=== PATIENT | female | born 1975 | race Caucasian/White ===

== ENCOUNTER 2016-10-01 21:53 | Emergency (ER) | payer OTHER ==
[2016-10-01 21:59] VITALS: BP 146/65; PULSE 116; TEMP 98.3; BMI 30.8
[2016-10-01 23:06] LABS: URINE APPEARANCE CLEAR; URINE BILIRUBIN NEGATIVE (NEGATIVE); URINE COLOR COLORLESS; URINE GLUCOSE (UA) 3+ (NEGATIVE); URINE KETONE NEGATIVE (NEGATIVE); URINE LEUK ESTERASE NEGATIVE (NEGATIVE); URINE NITRITE NEGATIVE (NEGATIVE); URINE PROTEIN NEGATIVE (NEGATIVE); URINE UROBILINOGEN NEGATIVE E.U./dl (0.2-1.0)
[2016-10-01 23:09] LABS: URINE BLOOD 2+ (NEGATIVE)
[2016-10-01 23:17] LABS: URINE BACTERIA RARE /hpf (NONE SEEN); URINE MUCUS RARE; URINE RBC 3 /hpf (0-3); URINE WBC <1 /hpf (3-5)
--- NOTE | 2016-10-01 23:35 | PDOC ---
History of Present Illness - General History Source: Patient Exam Limitations: No Limitations - History of Present Illness Initial Comments: 10/01/16 23:47 Patient is a 41 year old female , 10 weeks , with no significant past medical history who presents to the ED with abdominal pain and fever. She reports sharp RLQ abdominal pain. She notes that her fever at home was 100.6. Patient also reports sore throat, runny nose and cough. Patient states her her LMP was 07/20/2016. She notes that she has an [employer] appointment at [address] [place] [address] on 10/03. She reports sick contact with her children that have the flu. 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 <Nelly Locke - Last Filed: 10/01/16 23:47> <Zenia Arora - Last Filed: 10/02/16 02:03> - General Chief Complaint: Pain Stated Complaint: FEVER/BACK PAIN/ 8WKS PREGANANT Time Seen by Provider: 10/01/16 22:21 Past History <Nelly Locke - Last Filed: 10/01/16 23:47> - Psycho/Social/Smoking Cessation Hx Suicidal Ideation: No Smoking History: Unknown if ever smoked Hx Alcohol Use: No Drug/Substance Use Hx: No <Zenia Arora - Last Filed: 10/02/16 02:03> - Past Medical History Allergies/Adverse Reactions: Allergies Allergy/AdvReac Type Severity Reaction Status Date / Time No Known Allergies Allergy Verified 10/01/16 21:56 Home Medications: Ambulatory Orders Oseltamivir Phosphate [Tamiflu -] 75 mg PO BID #10 capsule 10/02/16 Review of Systems - Review of Systems Able to Perform ROS?: Yes Comments:: 10/01/16 23:48 CONSTITUTIONAL: Present: fever Absent: chills, diaphoresis, generalized weakness, malaise, loss of appetite HEENT: Present: rhinorrhea, throat pain Absent: nasal congestion, throat swelling, difficulty swallowing, mouth swelling , ear pain, eye pain, visual Changes CARDIOVASCULAR: Absent: chest pain, syncope, palpitations, irregular heart rate, lightheadedness , peripheral edema RESPIRATORY: Present: cough Absent: shortness of breath, dyspnea with exertion, orthopnea, wheezing, stridor , hemoptysis GASTROINTESTINAL: Present: abdominal pain Absent: abdominal distension, nausea, vomiting, diarrhea, constipation, melena, hematochezia GENITOURINARY: Absent: dysuria, frequency, urgency, hesitancy, hematuria, flank pain, genital pain MUSCULOSKELETAL: Absent: myalgia, arthralgia, joint swelling SKIN: Absent: rash, itching, pallor HEMATOLOGIC/IMMUNOLOGIC: Absent: easy bleeding, easy bruising, lymphadenopathy, frequent infections ENDOCRINE: Absent: unexplained weight gain, unexplained weight loss, heat intolerance, cold intolerance NEUROLOGIC: Absent: headache, focal weakness or paresthesias, dizziness, unsteady gait, seizure, mental status changes, bladder or bowel incontinence PSYCHIATRIC: Absent: anxiety, depression, suicidal or homicidal ideation, hallucinations. <Nelly Locke - Last Filed: 10/01/16 23:47> *Physical Exam - Vital Signs Last Vital Signs Temp Pulse Resp BP Pulse Ox 98.3 F 116 H 18 146/65 99 10/01/16 21:57 10/01/16 21:57 10/01/16 21:57 10/01/16 21:57 10/01/16 21:57 - Physical Exam Comments: 10/01/16 23:49 GENERAL: Well developed, well nourished. Awake and alert. No acute distress. HEENT: +Oropharynx with exudates. Normocephalic, atraumatic. PERRLA, EOMI. No conjunctival pallor. Sclera are non-icteric. Moist mucous membranes. NECK: Supple. Full ROM. No JVD. Carotid pulses 2+ and symmetric, without bruits. No thyromegaly. No lymphadenopathy. CARDIOVASCULAR: Regular rate and rhythm. No murmurs, rubs, or gallops. Distal pulses are 2+ and symmetric. PULMONARY: No evidence of respiratory distress. Lungs clear to auscultation bilaterally. No wheezing, rales or rhonchi. ABDOMINAL: Soft. Non-tender. Non-distended. No rebound or guarding. No organomegaly. Normoactive bowel sounds. MUSCULOSKELETAL Normal range of motion at all joints. No bony deformities or tenderness. No CVA tenderness. EXTREMITIES: No cyanosis. No clubbing. No edema. No calf tenderness. SKIN: Warm and dry. Normal capillary refill. No rashes. No jaundice. NEUROLOGICAL: Alert, awake, appropriate. Cranial nerves 2-12 intact. No deficits to light touch and temperature in face, upper extremities and lower extremities. No motor deficits in the in face, upper extremities and lower extremities. Normoreflexic in the upper and lower extremities. Normal speech. Toes are down-going bilaterally. Gait is normal without ataxia. PSYCHIATRIC: Cooperative. Good eye contact. Appropriate mood and affect. <Nelly Locke - Last Filed: 10/01/16 23:47> - Vital Signs Last Vital Signs Temp Pulse Resp BP Pulse Ox 98.3 F 116 H 18 146/65 99 10/01/16 21:57 10/01/16 21:57 10/01/16 21:57 10/01/16 21:57 10/01/16 21:57 <Zenia Arora - Last Filed: 10/02/16 02:03> ED Treatment Course - ADDITIONAL ORDERS Additional order review: Laboratory Results 10/01/16 22:58 Urine Color Colorless Urine Appearance Clear Urine pH 6.0 Ur Specific [place] 1.000 L Urine Protein Negative Urine Glucose (UA) 3+ H Urine Ketones Negative Urine Blood 2+ H Urine Nitrite Negative Urine Bilirubin Negative Urine Urobilinogen Negative Ur Leukocyte Esterase Negative Urine RBC 3 Urine WBC <1 Ur Epithelial Cells Rare Urine Bacteria Rare Urine Mucus Rare <Nelly Locke - Last Filed: 10/01/16 23:47> - LABORATORY CBC & Chemistry Diagram: 10/02/16 00:00 10/02/16 00:00 - ADDITIONAL ORDERS Additional order review: Laboratory Results 10/01/16 22:58 Urine Color Colorless Urine Appearance Clear Urine pH 6.0 Ur Specific [place] 1.000 L Urine Protein Negative Urine Glucose (UA) 3+ H Urine Ketones Negative Urine Blood 2+ H Urine Nitrite Negative Urine Bilirubin Negative Urine Urobilinogen Negative Ur Leukocyte Esterase Negative Urine RBC 3 Urine WBC <1 Ur Epithelial Cells Rare Urine Bacteria Rare Urine Mucus Rare <Zenia Arora - Last Filed: 10/02/16 02:03> Medical Decision Making - Medical Decision Making 10/02/16 01:56 41-year-old woman who presents stating that she's a weeks and had headache, neck pain, body aches Her children had the flu at home CBC and chemistries are essentially unremarkable Her temp here is 101.2. When I retook it and she was given Tylenol Beta-hCG was less than 1 and explained to her that we had a negative test. UA was negative Patient does not have any significant respiratory problems or coughing Impression viral syndrome/flu RX tamiflu <Zenia Arora - Last Filed: 10/02/16 02:03> *DC/Admit/Observation/Transfer - Attestations Scribe Attestion: 10/01/16 23:51 Documentation prepared by VENU Caballero, acting as biomedical engineering technologist for Zenia Arora MD. <Nelly Locke - Last Filed: 10/01/16 23:47> <Zenia Arora - Last Filed: 10/02/16 02:03> Diagnosis at time of Disposition: Body aches Fever Qualifiers: Fever type: other Qualified Code(s): R50.81 - Fever presenting with conditions classified elsewhere URI (upper respiratory infection) Qualifiers: URI type: unspecified viral URI Qualified Code(s): J06.9 - Acute upper respiratory infection, unspecified - Discharge Dispostion Disposition: HOME Condition at time of disposition: Stable - Prescriptions Prescriptions: Oseltamivir Phosphate [Tamiflu -] 75 mg PO BID #10 capsule - Patient Instructions Printed Discharge Instructions: DI for Viral Upper Respiratory Infection -- Adult, DI for Fever (Symptom) -- Adult Additional Instructions: 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
[2016-10-02 00:30] LABS: BASOPHIL 0.6 % (0-2.0); EOSINOPHIL 0.5 % (0-4.5); MCH 27.4 pg (25.7-33.7); MCHC 33.3 g/dl (32.0-36.0); MEAN CELL VOLUME 82.3 fl (80-96); MEAN PLT VOLUME 7.3 fl (7.5-11.1); NEUTROPHILS 76.8 % (42.8-82.8); PLATELET COUNT 245 K/MM3 (134-434); RDW 15.8 % (11.6-15.6); WHITE BLOOD COUNT 6.5 K/mm3 (4.0-10.0)
[2016-10-02 00:53] LABS: ALBUMIN 2.9 g/dl (3.4-5.0); ANION GAP 12 (8-16); BILIRUBIN,TOTAL 0.3 mg/dL (0.2-1.0); CALCIUM 8.7 mg/dL (8.5-10.1); CO2 23 mmol/L (21-32); CREATININE 0.5 mg/dL (0.55-1.02); GLUCOSE,RANDOM 119 mg/dL (74-106); SGOT/AST 18 U/L (15-37); SGPT/ALT 30 U/L (12-78); TOT PROT 6.8 g/dl (6.4-8.2)
[2016-10-02 00:54] LABS: ALK PHOS 83 U/L (45-117)
[2016-10-02] MEDS ORDERED: ACETAMINOPHEN 325 MG TABLET (FP) PO ONE (01:55)
[2016-10-02] MEDS ORDERED: ACETAMINOPHEN 325 MG TABLET (FP) ONE (02:09)
== END 2016-10-02 02:12 | disposition home or self-care (01) ==
LOC: JER 21:53
DX: J06.9 Acute upper respiratory infection, unspecified (principal)
CPT/HCPCS: 36415; 80053; 81003; 81015; 84702; 85025; 87086; 87804; 99282-25

== ENCOUNTER 2017-04-13 06:26 | Inpatient (IN) | payer OTHER ==
[2017-04-13] MEDS ORDERED: ELECTROLYTE-148 SOLN 500 ML IV ONE (06:30)
[2017-04-13 07:43] VITALS: BMI 36.3
[2017-04-13] MEDS ORDERED: DEXTROSE 5%-LACTATED RINGERS 1,000 ML IV SCH (07:45)
[2017-04-13] MEDS ORDERED: CITRIC ACID/SODIUM CITRATE 30 ML UNIT-DOSE CUP PO ONE (08:00)
[2017-04-13 08:16] LABS: BASOPHIL 0.4 % (0-2.0); EOSINOPHIL 0.9 % (0-4.5); MCH 29.5 pg (25.7-33.7); MCHC 33.5 g/dl (32.0-36.0); MEAN CELL VOLUME 88.1 fl (80-96); MEAN PLT VOLUME 9.6 fl (7.5-11.1); NEUTROPHILS 69.2 % (42.8-82.8); PLATELET COUNT 104 K/MM3 (134-434); RDW 14.7 % (11.6-15.6); WHITE BLOOD COUNT 6.1 K/mm3 (4.0-10.0)
--- NOTE | 2017-04-13 08:22 | HP ---
Past Medical History - Primary Care Physician PCP:: Millie Quinones - Admission Chief Complaint: 41 yrs ( AMA ) , 39.3/7 weeks , previous c/s x3 , & volountory sterlization , known c/o GDM on insulin management . History of Present Illness: care at [address] [place] [address]. GDM managed by MFM, intially diet ,, poorly controlled followed by Glyburide 2.5 mg, followed by glyburide 5 mg & hs , 2.5 mg bid ( sub optimal control ) followed by Insulin on 03/2011 . novolin 26, , novolog 14 iu, , dinner 26 iu Novolin , Novolog 14 iu wqas planned . (, 03/28 final insulin intake was Novolin- R 14 before breakfast , Novolin R 14 IU before dinner& 24 IU Novolin N HS NT Screen not done, Quad Screen intemediate for DS 1: 995 Materna T21 neg. 04/04 sono vx, Bpp8/8 , DAYANA 11.66, post placenta . 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 04/2003 , Repeat c/ s. 12/2009 Repeat c/s Heme/Onc: Yes: Anemia Infectious Disease: No: HIV, STD's Psych: No: Addictions, Depression Endocrine: Yes: Other (GDM, controlled on insulin) - Past Surgical History Past Surgical History: Yes: (199. 2002, 2009) Hx Myomectomy: No Hx Transabdominal Cerclage: No - Smoking History Smoking history: Never smoked Have you smoked in the past 12 months: No - Alcohol/Substance Use Hx Alcohol Use: No History of Substance Use: reports: None Home Medications - Allergies Allergies/Adverse Reactions: Allergies Allergy/AdvReac Type Severity Reaction Status Date / Time No Known Allergies Allergy Verified 04/13/17 12:41 - Home Medications Home Medications: Ambulatory Orders Pnv95/Ferrous Fumarate/FA [ Vitamin Tablet] 1 each PO DAILY 02/14/17 Home Medications (free text): Novolin R 14 IU before breakfast, & dinner. 24 IU Novolin N HS Physical Exam - Maternity Vital Signs: Vital Signs Temperature 98 Pulse Rate 82 Respiratory Rate 14 04/13/17 07:31 Blood Pressure 140/80 O2 Sat by Pulse Oximetry (%) Selected Entries 04/13/17 07:31 Weight 180 lb Constitutional: Yes: Well Nourished, No Distress Eyes: Yes: WNL HENT: Yes: WNL, Normocephalic Neck: Yes: WNL Cardiovascular: Yes: WNL, Regular Rate and Rhythm Lungs: Clear to auscultation Breast(s): Yes: WNL - Abdominal Exam/OB Fundal Height: 40 Number of Fetuses: Single Presentation: Vertex Contractions: No Monitor Mode: External Heart Rate (range): 115 Heart Rate Location: [facility] Category: I Accelerations: Uniform Decelerations: None - Vaginal Exam/OB Vaginal Bleediing: No Speculum Exam: No Dilatation (cm): close Effacement (%): unefface Presentation: Vertex/Position Station: -3 - Physical Exam Musculoskeletal: Yes: WNL Extremities: Yes: WNL. No: Calf Tenderness Edema: Yes (abdominal wall edema ) Edema: LLE: 2+, RLE: 2+ Integumentary: Yes: Incision (old pfannensteil scar) Deep Tendon Reflex Grade: Normal +2 Psychiatric: Yes: WNL, Alert, Oriented - Labs Lab Results: Laboratory Tests 04/13/17 04/13/17 04/13/17 08:00 08:00 08:00 WBC 6.1 Hgb 12.8 MCV 88.1 Plt Count 104 L Neutrophils % 69.2 Lymphocytes % 22.5 Monocytes % 7.0 Eosinophils % 0.9 Basophils % 0.4 INR 1.03 PTT (Actin FS) 35.7 H Laboratory Tests 04/09/17 04/09/17 04/09/17 13:48 13:48 13:48 Sodium 136 Potassium 3.7 Chloride 104 Carbon Dioxide 24 BUN 11 D Creatinine 0.5 L POC Glucometer Random Glucose 138 H Calcium 8.5 Total Bilirubin 0.6 D AST 22 D ALT 21 D Total Protein 5.7 L Albumin 2.2 L D Urine Protein Negative Urine Glucose (UA) Negative Urine Ketones Negative Urine Blood 1+ H Urine RBC <1 Urine WBC 1 Ur Epithelial Cells Moderate Urine Bacteria Moderate RPR Titer Nonreactive 04/13/17 09:17 Sodium Potassium Chloride Carbon Dioxide BUN Creatinine POC Glucometer 119 Random Glucose Calcium Total Bilirubin AST ALT Total Protein Albumin Urine Protein Urine Glucose (UA) Urine Ketones Urine Blood Urine RBC Urine WBC Ur Epithelial Cells Urine Bacteria RPR Titer Hemorrhage Risk Assessment - Risk Factors Medium Risk Factors: Yes: Prior , uterine surgery,or multiple laparotomies Risk Score: 1 Risk Level: Medium Risk Problem List - Problems (1) with 39 completed weeks gestation Code(s): Z3A.39 - 39 WEEKS GESTATION OF (2) Previous section Code(s): Z98.891 - HISTORY OF UTERINE SCAR FROM PREVIOUS SURGERY (3) Gestational diabetes mellitus (GDM) affecting fourth Code(s): O24.419 - GESTATIONAL DIABETES MELLITUS IN , UNSP CONTROL O09.40 - SUPERVISION OF W GRAND MULTIPARITY, UNSP TRIMESTER (4) Gestational diabetes mellitus (GDM) requiring insulin Code(s): O24.414 - GESTATIONAL DIABETES IN , INSULIN CONTROLLED (5) Multiparity Code(s): Z64.1 - PROBLEMS RELATED TO MULTIPARITY (6) AMA (advanced maternal age) multigravida 35+ Code(s): O09.529 - SUPERVISION OF ELDERLY MULTIGRAVIDA, UNSPECIFIED TRIMESTER Assessment/Plan 41 yrs , previous c/sx3 ,39 .3 weeks requests voluntory sterlization GDM on Insulin control ( Novolin R 14 IU before breakfast & dinner & Novolin R 24 IU HS ) GBS neg . Plan : Repeat c/section & Voluntory Sterlization ( BTL )
[2017-04-13 08:59] LABS: INR 1.03 (0.82-1.09); PROTHROMBIN TIME (PATIENT) 11.3 SEC (9.98-11.88)
[2017-04-13] MEDS ORDERED: morphine SULFATE/Preservative Free 0.5 MG/ML (1cc Syringe) SPIN ONE (09:40)
[2017-04-13] MEDS ORDERED: ONDANSETRON 4 MG/2 ML VIAL IVPB PRN (09:40)
[2017-04-13 09:52] LABS: ARTERIAL BLOOD GAS pH 7.31 (7.35-7.45)
[2017-04-13 09:53] LABS: ARTERIAL BLD GAS O2 SATURATION 33.9 % (90-98.9); ARTERIAL BLOOD GAS HCO3 24.9 meq/L (22-26)
[2017-04-13 09:54] LABS: LPM/O2% 21%; PT. ON O2? NO; TYPE OF O2 R/A
[2017-04-13 09:56] LABS: ARTERIAL BLOOD GAS PO2 19.8 mmHg (80-100)
[2017-04-13 09:57] LABS: ARTERIAL BLOOD GAS pH 7.28 (7.35-7.45)
[2017-04-13 09:58] LABS: ARTERIAL BLD GAS O2 SATURATION 16.6 % (90-98.9); ARTERIAL BLOOD GAS BASE EXCESS -3.1 meq/l (-2-2); ARTERIAL BLOOD GAS HCO3 24.9 meq/L (22-26)
[2017-04-13 09:59] LABS: LPM/O2% 21%; PT. ON O2? NO; TYPE OF O2 R/A
[2017-04-13 10:00] LABS: ARTERIAL BLOOD GAS PO2 16.3 mmHg (80-100)
--- NOTE | 2017-04-13 10:58 | OP ---
Operative Note - Note: Operative Date: 04/13/17 Pre-Operative Diagnosis: Bladder injury Operation: Open repair of bladder injury Findings: 3cm bladder adhesion w open mucosa Post-Operative Diagnosis: Same as Pre-op Surgeon: Hayden Bacon MD. Anesthesia: Spinal Estimated Blood Loss (mls): 300
--- NOTE | 2017-04-13 11:29 | OP ---
DATE OF OPERATION: 04/13/2017 BRIEF HISTORY: This is a 41-year-old female who I was called. During a section, it was noted that urine was emanating from the bladder. Of note is the patient had 3 prior sections with scar tissue. DESCRIPTION OF PROCEDURE: I entered the operating room. The bladder was exposed as was the uterus. There were multiple adhesive areas from the bladder to the uterus. The bladder wall was freed using sharp and blunt dissection from the posterior inferior bladder uterus. The bladder was sharply dissected, and edges were freshened. Using a 2-0 chromic suture in a running fashion, initial part of the laceration, which was mostly horizontal was closed in a running fashion. A small vertical component was closed using a second 2-0 running chromic. The second layer was then closed using interrupted 2-0 chromic. The bladder was then filled with approximately 250 mL, and there was no evidence of extravasation. Methylene blue was given and was not seen in the operative field. At this time, a No. 10 ANTHONY was placed through a separate stab wound in the left lower quadrant. This was secured using a 3-0 chromic suture. The OB team was instructed to replace the current Rodriguez with an 18 or 20-Latvian Rodriguez catheter. We will leave the catheter in for approximately 10 days. DEANDRE ABDULLAHI M.D. [id number]
[2017-04-13] MEDS ORDERED: METHYLERGONOVINE MALEATE 0.2 MG/1 ML AMP IM PRN (11:49)
[2017-04-13] MEDS ORDERED: SENNOSIDES/DOCUSATE COMBO (SENNA PLUS) TABLET (UD) PO PRN (11:49)
[2017-04-13] MEDS ORDERED: SODIUM CHLORIDE 1,000 ML IV SCH (12:15)
--- NOTE | 2017-04-13 12:49 | PN ---
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 h/o GDM on Insulin, Novolin R 14 IU before breakfast & dinner Novolin N 24 IU 14 HS . GBs neg Intraop Bladder injury to the bladder dome noted, repaired by Dr Bacon Urologist ANTHONY drain inserted
[2017-04-13 12:56] LABS: BASOPHIL 0.2 % (0-2.0); EOSINOPHIL 0.1 % (0-4.5); MCH 29.4 pg (25.7-33.7); MCHC 33.2 g/dl (32.0-36.0); MEAN CELL VOLUME 88.7 fl (80-96); MEAN PLT VOLUME 9.7 fl (7.5-11.1); NEUTROPHILS 86.5 % (42.8-82.8); PLATELET COUNT 107 K/MM3 (134-434); RDW 14.7 % (11.6-15.6); WHITE BLOOD COUNT 9.1 K/mm3 (4.0-10.0)
--- NOTE | 2017-04-13 13:03 | OP ---
Operative Note - Note: Operative Date: 04/13/17 Pre-Operative Diagnosis: 39.3 weeks, previous c/sx3, multiparity Operation: Repeat LFTC/Section & BTL & Repair of Bladder Injury Findings: Baby Boy , LOT, 8/9, Wt 9'12" , Both Tubes ligated & cut by modified elizabeth technique both ovaries normal bladder dome injury noted Intraop consilt with Urologist Dr Bacon obtained bladder injury, 3 cm rent repaired in 2 layers after mobilizing the bladder , confirmed proper closure by instilling N saline through catheter . IV methylene blue was given Post-Operative Diagnosis: Other (bladder Injury) Surgeon: Millie Quinones (Dr Bacon) Multiple Slide Operator: Lance Vega Anesthesiologist/JOGGLE PRESS OPERATOR: Alannah Stanford MD Anesthesia: Spinal Specimens Removed: cord blood gas sampling. cord blood. placenta Estimated Blood Loss (mls): 1,200 Drains & Tubes with Location: ANTHONY drain from LLQ , minimal drain in bulb. oozing around tube near skin Drains, Volume Out (mls): 450 (, Inaccurate irrigation of bladder ) Fluid Volume Replaced (mls): 4,500 (3000 with pitocn 20iu,IV Ancef 2 gm & IV gentamicin 80 mg & ) Operative Report Dictated: Yes
[2017-04-13 13:25] LABS: ANION GAP 9 (8-16); CALCIUM 6.9 mg/dL (8.5-10.1); CO2 24 mmol/L (21-32); CREATININE 0.4 mg/dL (0.55-1.02); GLUCOSE,RANDOM 97 mg/dL (74-106)
[2017-04-13] MEDS: ACETAMINOPHEN 1000 MG/100 ML VIAL (NON FORMULARY) IVPB PRN (13:44)
[2017-04-13] MEDS ORDERED: DEXTROSE 5%-LACTATED RINGERS 1,000 ML IV ONE (17:30)
[2017-04-13] MEDS: CEFAZOLIN (PRE-DOCKED) 50 ML IVPB SCH (17:39)
[2017-04-13] MEDS ORDERED: CEFAZOLIN 1 GM/D5W 50 ML IVPB SCH (18:00)
[2017-04-13] MEDS: GENTAMICIN 80 MG PREMIXED IVPB 100 ML IVPB SCH (18:11)
[2017-04-14] MEDS ORDERED: SODIUM CHLORIDE 1,000 ML IV SCH (01:00)
[2017-04-14] MEDS: CEFAZOLIN (PRE-DOCKED) 50 ML IVPB SCH ×3 (01:32→17:57)
[2017-04-14] MEDS: GENTAMICIN 80 MG PREMIXED IVPB 100 ML IVPB SCH ×3 (02:21→18:35)
[2017-04-14] MEDS: ACETAMINOPHEN 1000 MG/100 ML VIAL (NON FORMULARY) IVPB PRN (06:11)
[2017-04-14] MEDS ORDERED: oxyCODONE HCL 5 MG TABLET PO PRN ×2 (08:00)
--- NOTE | 2017-04-14 08:30 | PN ---
Post Progress Note - Subjective Subjective: c/o catheter discomfort , has sensation of urinating wants to go to bathroom to urinate Post Day: 1 Type of Delivery: Repeat C/S (bladder repair) Vital Signs: Vital Signs Temperature 98.8 F 04/14/17 06:00 Pulse Rate 93 H 04/14/17 06:00 Respiratory Rate 18 04/14/17 06:00 Blood Pressure 125/74 04/14/17 06:00 O2 Sat by Pulse Oximetry (%) 100 04/13/17 12:30 Breast Exam: Yes: Soft. No: Engorged Uterus: Yes: Fundus Firm, Fundus below umbilicus Incision: Yes: Dressing dry and intact, Oozing (around ANTHONY drainage ) Abdomen/GI: Yes: Abdomen soft (bs active ), Tender, Tolerating PO (clear fluid ) . No: Abdominal Distention, Passing flatus Lochia: Yes: Rubra Lochia, amount: Moderate Extremities: Yes: Calves non-tender (scd in situ ), Edema (hands & feet ) Perineum: Yes: Intact Activity: Other (not oob yet ) - Labs Labs: CBC WBC 9.1 K/mm3 (4.0-10.0) D 04/13/17 12:10 RBC 3.96 M/mm3 (3.60-5.2) 04/13/17 12:10 Hgb 11.7 GM/dL (10.7-15.3) 04/13/17 12:10 Hct 35.1 % (32.4-45.2) 04/13/17 12:10 MCV 88.7 fl (80-96) 04/13/17 12:10 MCH 29.4 pg (25.7-33.7) 04/13/17 12:10 MCHC 33.2 g/dl (32.0-36.0) 04/13/17 12:10 RDW 14.7 % (11.6-15.6) 04/13/17 12:10 Plt Count 107 K/MM3 (134-434) L 04/13/17 12:10 MPV 9.7 fl (7.5-11.1) 04/13/17 12:10 Neutrophils % 86.5 % (42.8-82.8) H D 04/13/17 12:10 Lymphocytes % 10.3 % (8-40) D 04/13/17 12:10 Monocytes % 2.9 % (3.8-10.2) L 04/13/17 12:10 Eosinophils % 0.1 % (0-4.5) D 04/13/17 12:10 Basophils % 0.2 % (0-2.0) 04/13/17 12:10 Laboratory Tests 04/13/17 04/13/17 04/13/17 09:17 16:31 21:20 POC Glucometer 119 62 156 04/14/17 06:49 POC Glucometer 81 Other Findings, Remarks: RS cta I/O , urine output 2300 ml, light pink stained ANTHONY drain 140 ml bloody. intake iv 1050 , po 300 ml Problem List - Problems (1) with 39 completed weeks gestation Code(s): Z3A.39 - 39 WEEKS GESTATION OF (2) Previous section Code(s): Z98.891 - HISTORY OF UTERINE SCAR FROM PREVIOUS SURGERY (3) Gestational diabetes mellitus (GDM) affecting fourth Code(s): O24.419 - GESTATIONAL DIABETES MELLITUS IN , UNSP CONTROL O09.40 - SUPERVISION OF W GRAND MULTIPARITY, UNSP TRIMESTER (4) Gestational diabetes mellitus (GDM) requiring insulin Code(s): O24.414 - GESTATIONAL DIABETES IN , INSULIN CONTROLLED (5) Multiparity Code(s): Z64.1 - PROBLEMS RELATED TO MULTIPARITY (6) AMA (advanced maternal age) multigravida 35+ Code(s): O09.529 - SUPERVISION OF ELDERLY MULTIGRAVIDA, UNSPECIFIED TRIMESTER Assessment/Plan s/p repeat c/s BTl & bladder repair day #1 stable , Iv fluids to reduce due to edema peripheral , will adjust according to patient's po intake encourage incentive spirometer, OOB, ambulation with alford plan ct iv antibitics ancef & gentamicin today cbc & bmp pending . bgm are wnl
[2017-04-14 08:34] LABS: BASOPHIL 0.5 % (0-2.0); EOSINOPHIL 0.3 % (0-4.5); MCH 29.2 pg (25.7-33.7); MCHC 33.1 g/dl (32.0-36.0); MEAN CELL VOLUME 88.3 fl (80-96); MEAN PLT VOLUME 8.9 fl (7.5-11.1); NEUTROPHILS 78.3 % (42.8-82.8); PLATELET COUNT 127 K/MM3 (134-434); RDW 14.9 % (11.6-15.6); WHITE BLOOD COUNT 7.9 K/mm3 (4.0-10.0)
[2017-04-14] MEDS ORDERED: LIDOCAINE HCL 2% JELLY 10 ML CARTRIDGE TP PRN (08:38)
[2017-04-14 08:54] LABS: ANION GAP 6 (8-16); CALCIUM 7.9 mg/dL (8.5-10.1); CO2 24 mmol/L (21-32); CREATININE 0.5 mg/dL (0.55-1.02); GLUCOSE,RANDOM 94 mg/dL (74-106)
[2017-04-14] MEDS: ENOXAPARIN NA (PORCINE) 40 MG/0.4 ML DISP.SYRIN SQ SCH (09:35)
[2017-04-14] MEDS: PRENATAL VITAMINS W/ FOLIC ACID TABLET (FP) PO SCH (09:47)
[2017-04-14] MEDS ORDERED: BISACODYL 10 MG SUPP.RECT RC PRN (12:00)
[2017-04-14] MEDS: ACETAMINOPHEN 325 MG TABLET (FP) PO PRN (21:34)
[2017-04-14] MEDS: FERROUS SO4 325 MG TABLET (FP) PO SCH (21:34)
[2017-04-14] MEDS: SIMETHICONE 80 MG TAB.CHEW (FP) PO PRN (21:34)
[2017-04-15] MEDS: CEFAZOLIN (PRE-DOCKED) 50 ML IVPB SCH ×3 (01:43→17:10)
[2017-04-15] MEDS: GENTAMICIN 80 MG PREMIXED IVPB 100 ML IVPB SCH ×3 (02:58→17:42)
--- NOTE | 2017-04-15 07:40 | PN ---
Progress Note, Physician Chief Complaint: S/P C SECTION POST OP DAY ONE History of Present Illness: SPINAL ANESTHESIA WITH DURAMORPH FOR POST OP PAIN CONTROL - Current Medication List Current Medications: Active Medications Acetaminophen (Tylenol -) 650 mg PO Q4H PRN PRN Reason: FEVER OR PAIN Last Admin: 04/14/17 21:34 Dose: 650 mg Bisacodyl (Dulcolax Suppository -) 10 mg RC PRN PRN PRN Reason: CONSTIPATION Diphenhydramine HCl (Benadryl Injection -) 25 mg IVPUSH Q4H PRN PRN Reason: Pruritis Enoxaparin Sodium (Lovenox -) 40 mg SQ DAILY [facility] Last Admin: 04/14/17 09:35 Dose: 40 mg Ferrous Sulfate (Feosol -) 325 mg PO BID [facility] Last Admin: 04/14/17 21:34 Dose: 325 mg Gentamicin Sulfate/Sodium Chloride (Garamycin 80 Mg Premixed Ivpb -) 100 mls @ 100 mls/hr IVPB Q8H-IV [facility] Last Admin: 04/15/17 02:58 Dose: 100 mls/hr Sodium Chloride (Normal Saline -) 1,000 mls @ 125 mls/hr IV ASDIR [facility]ISA Last Admin: 04/14/17 00:30 Dose: 125 mls/hr Cefazolin Sodium (Ancef 1gm Ivpb (Pre-Docked)) 50 mls @ 100 mls/hr IVPB Q8H-IV [facility] Last Admin: 04/15/17 01:43 Dose: 100 mls/hr Ibuprofen (Motrin -) 600 mg PO Q4H PRN PRN Reason: PAIN Lidocaine HCl (Xylocaine 2% Uro-Jet) 10 ml TP BID PRN Stop: 04/18/17 08:37 Last Admin: 04/14/17 09:36 Dose: 10 ml Methylergonovine Maleate (Methergine Injection -) 0.2 mg IM Q4H PRN PRN Reason: Excessive Bleeding (L&D) Oxycodone HCl (Roxicodone -) 5 mg PO Q4H PRN PRN Reason: PAIN LEVEL 1-5 Oxycodone HCl (Roxicodone -) 10 mg PO Q4H PRN PRN Reason: PAIN LEVEL 6-10 Last Admin: 04/14/17 21:34 Dose: 10 mg Multivit/Folic Acid/Iron ( Vitamins (Sjr) -) 1 tab PO DAILY [facility]ISA Last Admin: 04/14/17 09:47 Dose: Not Given Senna/Docusate Sodium (Pericolace -) 2 tablet PO HS PRN PRN Reason: CONSTIPATION Simethicone (Mylicon -) 80 mg PO Q4H PRN PRN Reason: GAS Last Admin: 04/14/17 21:34 Dose: 80 mg - Objective Vital Signs: Vital Signs Temperature 98.4 F 04/14/17 22:00 Pulse Rate 104 H 04/14/17 22:00 Respiratory Rate 18 04/14/17 22:00 Blood Pressure 124/76 04/14/17 22:00 O2 Sat by Pulse Oximetry (%) 100 04/13/17 12:30 Constitutional: Yes: Well Nourished Cardiovascular: Yes: WNL Respiratory: Yes: WNL Gastrointestinal: Yes: WNL Neurological: Yes: WNL Labs: CBC, BMP 04/14/17 07:35 04/14/17 07:35 INR, PTT INR 1.03 (0.82-1.09) 04/13/17 08:00 Assessment/Plan NO ADVERSE EFFECTS OF ANESTHETIC, DEPT OF ANESTHESIA WILL SIGN OFF CARE AT THIS TIME
--- NOTE | 2017-04-15 09:09 | OP ---
DATE OF OPERATION: 04/13/2017 PREOPERATIVE DIAGNOSES: At 39.3 weeks, previous section x3, multiparity. OPERATION DONE: Repeat low-flap transverse section, bilateral tubal ligation, and repair of bladder injury. SURGEON: Millie Quinones MD INTRAOPERATIVE CONSULTATION: Hayden Bacon MD, urologist. ANESTHESIOLOGIST: Alannah Stanford MD RELOCATION SERVICES SPECIALIST: PATRICIA Triplett FINDINGS: This is a 41-year-old, 4, para 3-0-0-3 at 39.3 weeks with gestational diabetes, on insulin, controlled, not in labor; was admitted for elective with tubal ligation. DESCRIPTION OF PROCEDURE: Patient is taken to the operating room table. Abdomen was shaved. Rodriguez catheter was placed. Spinal anesthesia was given. She was placed in supine position. Abdomen was painted and draped in usual manner. Then, Pfannenstiel incision was made. Skin, subcutaneous tissue and anterior rectus sheath was incised transversely. Bleeding points were clamped and cauterized. Rectus muscle was from the rectus sheath. Parietal peritoneum was opened vertically. Lower flap of the peritoneum was incised transversely, and the bladder was pushed down, but it was adherent to the lower segment. An incision was made in the lower segment, and then, the baby was delivered at 8 :50 a.m. from LOT position. Apgars were 8 and 9. Baby's weight was 9 pound 12 ounces, baby boy. Cord was clamped, cut. Cord blood was collected, and Dr. Chad Corral, the superintendent plant, was present in the room. Then, the placenta was removed completely with the membranes. The uterine incision was well-delineated. There was a bladder injury noted in the dome of the bladder, about 3 cm. The bladder was carefully mobilized and pushed down further from the lower segment incision border. Then, the urologist on-call, Dr. Bacon, was called to obtain an intraoperative consult for repair of the bladder. In the meantime , the uterine incision was closed in 2 layers. First layer was a continuous locking with Biosyn 0 suture, 2nd layer was closed with a continuous, but intermittent locking with Biosyn 0 suture, and hemostasis was checked. Both the tubes and ovaries were identified. The right side, first tube was ligated in the mid-ampullary portion, and a portion of the tube was doubly ligated with a plain 2-0 catgut and the portion of the tube above that was cut and sent for pathology examination and endosalpinx was cauterized. On the left side, only the fimbrial end with a little, about 2 cm of the ampullary portion of the tube was noted, and there was some cornual end, so it appears that probably patient had an ectopic in the past. There was no tubal segment seen in the middle portion of the tube, so the lateral salpingectomy, including the fimbria, was done and sent for pathology examination. Below the tube, 2 Makenna clamps were placed, and the tube was cut and then the tubal segments were ligated with 2-0 plain catgut. Hemostasis was noted, and until Dr. Bacon arrived, I closed the bladder injury in 2 layers. First layer was with a 2-0 chromic catgut, 2nd layer was imbricating the 1st layer with 2-0 chromic catgut, and still, I could see some urine leaking out posteriorly. I exactly could not identify the rent, and when Dr. Bacon arrived, he mobilized the bladder further down and then posteriorly further opening. in the bladder ,he identified and then closed the opening with a 3-0 chromic catgut in 2 layers and then ANTHONY drain was placed by the site of repair by him. The complete effective closure was confirmed by asking the nurse to instill saline solution in the bladder from the Rodriguez catheter tubing, and then, once there were no more urine leaking out from above, so it was confirmed adequate repair and then the closure of the abdomen was done. The anesthesiologist was asked to give IV methylene blue, and she had given an ampule of IV methylene blue, but due to the blood and irrigation, bluish discoloration could not be identified in the urine. The sponge, instrument, and needle count was correct, and then, the closure of the abdomen was done. Parietal peritoneum was closed with Vicryl 0 suture, muscles were approximated together with Vicryl 0 suture. There was bleeding noted in the rectus muscle on the left angle that was also sutured with chromic catgut, and hemostasis was achieved. The anterior abdominal muscles were approximated with interrupted sutures. Then, anterior rectus sheath was closed with a Vicryl 0 continuous suture, and then the subcutaneous tissues with interrupted sutures were taken with a Vicryl. Skin was approximated with danielle. Patient tolerated the procedure well. Pressure dressing was given. Then, Rodriguez catheter was changed from number 14 catheter to number 20 catheter, and return urine was blood-stained and a total of 450 mL of urine was noted, but the urine output was inaccurate due to the irrigation in the bladder and the urine also leaking out from abdominally. Patient was given 2 g of IV Ancef prior to the incision. Intraoperatively, 18 mg of IV gentamicin also was given. She was transferred to the recovery room in stable condition. Leann [id number] MTDD
[2017-04-15] MEDS: SIMETHICONE 80 MG TAB.CHEW (FP) PO PRN (09:25)
[2017-04-15] MEDS: PRENATAL VITAMINS W/ FOLIC ACID TABLET (FP) PO SCH (09:25)
[2017-04-15] MEDS: FERROUS SO4 325 MG TABLET (FP) PO SCH ×2 (09:25→22:59)
[2017-04-15] MEDS: IBUPROFEN 600 MG TABLET (FP) PO PRN (09:26)
[2017-04-15] MEDS: ENOXAPARIN NA (PORCINE) 40 MG/0.4 ML DISP.SYRIN SQ SCH (09:26)
--- NOTE | 2017-04-15 10:39 | PN ---
Post Progress Note - Subjective Subjective: c/o pain scale 8/10. still c/o discomfort around catheter Post Day: 2 Type of Delivery: Repeat C/S (repair of bladder injury) Vital Signs: Vital Signs Temperature 98.1 F 04/15/17 08:22 Pulse Rate 85 04/15/17 08:22 Respiratory Rate 18 04/15/17 08:22 Blood Pressure 125/68 04/15/17 08:22 O2 Sat by Pulse Oximetry (%) 100 04/13/17 12:30 Breast Exam: Yes: Soft, Other (BF ). No: Engorged Uterus: Yes: Fundus Firm, Fundus below umbilicus. No: Non-tender Incision: Yes: Hopkins intact, Other (ANTHONY drain from LLQ , nooozing around drainage site ). No: Redness, Oozing Abdomen/GI: Yes: Abdomen soft, Tender, Passing flatus (bm done ), Tolerating PO (diet ). No: Abdominal Distention Lochia, amount: Moderate Extremities: Yes: Calves non-tender, Edema (less than yesterday of hands & feet ) Perineum: Yes: Intact Activity: Ambulating - Labs Labs: CBC WBC 7.9 K/mm3 (4.0-10.0) 04/14/17 07:35 RBC 3.54 M/mm3 (3.60-5.2) L 04/14/17 07:35 Hgb 10.3 GM/dL (10.7-15.3) L D 04/14/17 07:35 Hct 31.2 % (32.4-45.2) L 04/14/17 07:35 MCV 88.3 fl (80-96) 04/14/17 07:35 MCH 29.2 pg (25.7-33.7) 04/14/17 07:35 MCHC 33.1 g/dl (32.0-36.0) 04/14/17 07:35 RDW 14.9 % (11.6-15.6) 04/14/17 07:35 Plt Count 127 K/MM3 (134-434) L 04/14/17 07:35 MPV 8.9 fl (7.5-11.1) 04/14/17 07:35 Neutrophils % 78.3 % (42.8-82.8) 04/14/17 07:35 Lymphocytes % 16.3 % (8-40) D 04/14/17 07:35 Monocytes % 4.6 % (3.8-10.2) 04/14/17 07:35 Eosinophils % 0.3 % (0-4.5) D 04/14/17 07:35 Basophils % 0.5 % (0-2.0) 04/14/17 07:35 Other Findings, Remarks: Laboratory Tests 04/13/17 04/14/17 04/14/17 21:20 06:49 13:28 POC Glucometer 156 81 133 04/14/17 04/15/17 21:32 06:16 POC Glucometer 192 112 RS cta . alford output 800 ml blood stained ANTHONY frain 15 ml Problem List - Problems (1) with 39 completed weeks gestation Code(s): Z3A.39 - 39 WEEKS GESTATION OF (2) Previous section Code(s): Z98.891 - HISTORY OF UTERINE SCAR FROM PREVIOUS SURGERY (3) Gestational diabetes mellitus (GDM) affecting fourth Code(s): O24.419 - GESTATIONAL DIABETES MELLITUS IN , UNSP CONTROL O09.40 - SUPERVISION OF W GRAND MULTIPARITY, UNSP TRIMESTER (4) Gestational diabetes mellitus (GDM) requiring insulin Code(s): O24.414 - GESTATIONAL DIABETES IN , INSULIN CONTROLLED (5) Multiparity Code(s): Z64.1 - PROBLEMS RELATED TO MULTIPARITY (6) AMA (advanced maternal age) multigravida 35+ Code(s): O09.529 - SUPERVISION OF ELDERLY MULTIGRAVIDA, UNSPECIFIED TRIMESTER Assessment/Plan stable s/p repeat c/sx & BTL & bladder injury repair, GDN day 2 pt improving , on iv ancef & gentamicin . Pt icounselled for diet, , po fluids , ambulation & deep breathing
--- NOTE | 2017-04-15 11:32 | CONSULT ---
Consult - text type - Consultation Consultation Note: POD 2 s/p bladder repair Pt in minimal pain christiano po OOB abd soft incision intact ANTHONY min drainage D/Charles alford to SD draining well Will stay for 10-14 days cr 0.5 Will follow as opd
[2017-04-16] MEDS: CEFAZOLIN (PRE-DOCKED) 50 ML IVPB SCH (01:23)
[2017-04-16] MEDS: GENTAMICIN 80 MG PREMIXED IVPB 100 ML IVPB SCH (01:59)
[2017-04-16 07:45] LABS: BASOPHIL 0.5 % (0-2.0); EOSINOPHIL 1.8 % (0-4.5); MCH 29.9 pg (25.7-33.7); MCHC 33.7 g/dl (32.0-36.0); MEAN CELL VOLUME 88.9 fl (80-96); MEAN PLT VOLUME 7.9 fl (7.5-11.1); NEUTROPHILS 78.5 % (42.8-82.8); PLATELET COUNT 198 K/MM3 (134-434); WHITE BLOOD COUNT 8.9 K/mm3 (4.0-10.0)
[2017-04-16] MEDS: PRENATAL VITAMINS W/ FOLIC ACID TABLET (FP) PO SCH (09:51)
[2017-04-16] MEDS: ENOXAPARIN NA (PORCINE) 40 MG/0.4 ML DISP.SYRIN SQ SCH (09:52)
[2017-04-16] MEDS: FERROUS SO4 325 MG TABLET (FP) PO SCH ×2 (09:52→21:18)
[2017-04-16] MEDS: ACETAMINOPHEN 325 MG TABLET (FP) PO PRN ×2 (10:00→21:30)
[2017-04-16] MEDS: SIMETHICONE 80 MG TAB.CHEW (FP) PO PRN ×2 (10:00→21:28)
[2017-04-16] MEDS: IBUPROFEN 600 MG TABLET (FP) PO PRN ×2 (10:01→21:29)
[2017-04-16] MEDS: AMOX TR/POT CLAV 875MG/125MG TABLETS (FP) PO SCH ×2 (10:18→17:10)
--- NOTE | 2017-04-16 13:39 | PN ---
Post Progress Note - Subjective Subjective: pt has pain tolerable, scale 4-5 Post Day: 3 (btl & Bladder repair ) Type of Delivery: Repeat C/S (repair of bladder injury) Vital Signs: Vital Signs Temperature 98.7 F 04/16/17 08:58 Pulse Rate 83 04/16/17 08:58 Respiratory Rate 20 04/16/17 08:58 Blood Pressure 122/67 04/16/17 08:58 O2 Sat by Pulse Oximetry (%) 100 04/13/17 12:30 Breast Exam: Yes: Soft, Other (BF ). No: Engorged Uterus: Yes: Fundus Firm, Fundus below umbilicus, Non-tender Incision: Yes: Kris intact. No: Redness, Oozing Abdomen/GI: Yes: Abdomen soft, Passing flatus (bn done ), Tolerating PO (diet ) . No: Abdominal Distention, Tender Lochia: Yes: Rubra Lochia, amount: Moderate Extremities: Yes: Calves non-tender, Edema (minimal ) Perineum: Yes: Intact Activity: Ambulating - Labs Labs: CBC WBC 8.9 K/mm3 (4.0-10.0) 04/16/17 07:18 RBC 3.51 M/mm3 (3.60-5.2) L 04/16/17 07:18 Hgb 10.5 GM/dL (10.7-15.3) L 04/16/17 07:18 Hct 31.2 % (32.4-45.2) L 04/16/17 07:18 MCV 88.9 fl (80-96) 04/16/17 07:18 MCH 29.9 pg (25.7-33.7) 04/16/17 07:18 MCHC 33.7 g/dl (32.0-36.0) 04/16/17 07:18 RDW 15.0 % (11.6-15.6) 04/16/17 07:18 Plt Count 198 K/MM3 (134-434) D 04/16/17 07:18 MPV 7.9 fl (7.5-11.1) D 04/16/17 07:18 Neutrophils % 78.5 % (42.8-82.8) 04/16/17 07:18 Lymphocytes % 14.9 % (8-40) 04/16/17 07:18 Monocytes % 4.3 % (3.8-10.2) 04/16/17 07:18 Eosinophils % 1.8 % (0-4.5) D 04/16/17 07:18 Basophils % 0.5 % (0-2.0) 04/16/17 07:18 Laboratory Tests 04/15/17 04/15/17 04/15/17 11:00 13:57 22:57 POC Glucometer 190 111 113 04/16/17 04/16/17 06:23 10:52 POC Glucometer 112 135 Other Findings, Remarks: pt catheter output 1500 ml, carmen color . Alford in situ ANTHONY drain removed by Dr Bacon yesterday , drainage was 22 ml befor remoal in 24 hrs . no drainage from the drain site RS cta Problem List - Problems (1) with 39 completed weeks gestation Code(s): Z3A.39 - 39 WEEKS GESTATION OF (2) Previous section Code(s): Z98.891 - HISTORY OF UTERINE SCAR FROM PREVIOUS SURGERY (3) Gestational diabetes mellitus (GDM) affecting fourth Code(s): O24.419 - GESTATIONAL DIABETES MELLITUS IN , UNSP CONTROL O09.40 - SUPERVISION OF W GRAND MULTIPARITY, UNSP TRIMESTER (4) Gestational diabetes mellitus (GDM) requiring insulin Code(s): O24.414 - GESTATIONAL DIABETES IN , INSULIN CONTROLLED (5) Multiparity Code(s): Z64.1 - PROBLEMS RELATED TO MULTIPARITY (6) AMA (advanced maternal age) multigravida 35+ Code(s): O09.529 - SUPERVISION OF ELDERLY MULTIGRAVIDA, UNSPECIFIED TRIMESTER Assessment/Plan stable, s/p repeat c/s btl & bladder repair Plan pt is instructed today about changing leg bag during day , alford bag at night she is well informed about need of cathter to be kept for 14 days she will follow with Dr Bacon in 10 daysd post op . she will be discharged tomorrow . , on antibiotics iv antibiotics are d/sheela, is placed on po Augmentin will order VNS GDM , i told the pt to watch diet , at present she does not need coverage.
[2017-04-17] MEDS: AMOX TR/POT CLAV 875MG/125MG TABLETS (FP) PO SCH ×2 (08:12→17:18)
[2017-04-17 08:49] VITALS: BP 114/73; PULSE 88; TEMP 98.1
[2017-04-17] MEDS: PRENATAL VITAMINS W/ FOLIC ACID TABLET (FP) PO SCH (09:52)
[2017-04-17] MEDS: FERROUS SO4 325 MG TABLET (FP) PO SCH (09:52)
[2017-04-17] MEDS: ENOXAPARIN NA (PORCINE) 40 MG/0.4 ML DISP.SYRIN SQ SCH (09:52)
--- NOTE | 2017-04-17 12:20 | PN ---
Progress Note (short form) - Note Progress Note: pod 4 doing well, mild cramps, urine alford cath clean CBC, BMP 04/16/17 07:18 04/14/17 07:35 Last Vital Signs Temp Pulse Resp BP Pulse Ox 98.1 F 88 20 114/73 100 04/17/17 08:42 04/17/17 08:42 04/17/17 08:42 04/17/17 08:42 04/13/17 12:30 abdomen soft, no distension, no cva incision dry, clean no calf tenderness plan ambulate, d/c home with alford cath for 2 weeks, follow up with urologist , make apt at [facility] in one week
--- NOTE | 2017-04-17 16:43 | PATH ---
Surgical Pathology Report Patient Name: SERGIO NIEVES [facility]. Rec. #: [id number] /Age/Gender: 1975 (Age: 41) / F Account: [id number] Location: [facility] OBS/SYSTEMS LEAD Taken: 04/13/2017 Received: 04/13/2017 Reported: 04/17/2017 Physicians: Millie Quinones M.D. Specimen(s) Received A: PLACENTA B: RIGHT FALLOPIAN TUBE C: LEFT FALLOPIAN TUBE Clinical History , 39.3 weeks IUP GDM, obesity x3 Final Diagnosis A. PLACENTA, DELIVERY: FOCALLY DISRUPTED THIRD TRIMESTER PLACENTA WITH THREE VESSEL UMBILICAL CORD AND UNREMARKABLE PLACENTAL MEMBRANES. B. RIGHT FALLOPIAN TUBE, PARTIAL SALPINGECTOMY: FULL LUMINAL PORTION OF UNREMARKABLE FALLOPIAN TUBE. C. LEFT FALLOPIAN TUBE, PARTIAL SALPINGECTOMY: FULL LUMINAL PORTION OF FALLOPIAN TUBE INCLUDING FIMBRIATED END, WITH BENIGN SEROUS PARATUBAL CYST. Electronically Signed Freeman Blancas M.D. Gross Description A. The specimen is received fresh labeled placenta and is a 624 gram, 21.0 x 20.0 x 2.7 cm. placenta with attached membranes and umbilical cord. The attached membranes are locke, thick, cloudy and insert marginally. The umbilical cord measures 18 cm. in length and averages 1.3 cm. in diameter. The cord inserts eccentrically, 5 cm. to the nearest margin. No true knots or strictures are identified. Cut surface of the umbilical cord reveals 3 vessels. The surface is moy-blue with minimal fibrin deposition and appropriate caliber vessels. The maternal surface is red-brown with focal defects. Sectioning reveals red-brown, spongy parenchyma. No lesions are identified. Waste Collection Driver sections are submitted in three cassettes as follows: 1- membrane rolls and umbilical cord; 2-3- full thickness sections of placenta. B. Received in formalin labeled "right portion of fallopian tube," is a 1.5 cm in length portion of fallopian tube. No fimbria are present. The outer surface is locke-galvan and smooth. Sectioning reveals an unremarkable lumen. Waste Collection Driver sections are submitted in one cassette. C. Received in formalin labeled "left portion of fallopian tube," is a 1.2 cm in length fimbriated portion of fallopian tube. The outer surface is locke moy and smooth with a 0.6 cm greatest dimension attached paratubal cyst. Sectioning reveals an unremarkable lumen. The specimen is entirely submitted in 2 cassettes as follows: 1-fimbria; 8-gcqad-aihoyvke of fallopian tube with paratubal cyst. 04/16/201704/16/2017
--- NOTE | 2017-04-17 20:03 | DS ---
Physical Exam-[employer]ATION WORK[employer] Vital Signs: Vital Signs Temperature 98.1 F 04/17/17 08:42 Pulse Rate 88 04/17/17 08:42 Respiratory Rate 20 04/17/17 08:42 Blood Pressure 114/73 04/17/17 08:42 O2 Sat by Pulse Oximetry (%) 100 04/13/17 12:30 Constitutional: Yes: Well Nourished Eyes: Yes: WNL HENT: Yes: WNL Neck: Yes: WNL Cardiovascular: Yes: WNL, Regular Rate and Rhythm Respiratory: Yes: WNL, Regular, CTA Bilaterally Gastrointestinal: Yes: WNL, Normal Bowel Sounds, Soft, Other (bm done). No: Distention Renal/: Yes: Vaginal Bleeding, Other (alford in situ draining not to be removed until 10-14 days post op . s/p bladder injury repair done). No: CVA Tenderness - Left, CVA Tenderness - Right ....Post : Yes: Uterus firm, Uterus non-tender, Moderate lochia rubra Breast(s): Yes: WNL (bf & bottle feeding) Musculoskeletal: Yes: WNL Extremities: No: Calf Tenderness Edema: LLE: Trace, RLE: Trace Integumentary: Yes: WNL Wound/Incision: Yes: Clean/Dry, Randolph Intact, Open to air Neurological: Yes: WNL, Alert, Oriented ...Motor Strength: WNL Psychiatric: Yes: WNL, Alert, Oriented Labs: CBC, BMP 04/16/17 07:18 04/14/17 07:35 Laboratory Tests 04/16/17 04/16/17 04/17/17 10:52 15:21 06:38 POC Glucometer 135 139 109 04/17/17 11:29 POC Glucometer 106 Delivery - Delivery Section: Repeat, Low Flap Transverse (BTL & Repair Bladder Injury by Dr Bacon) Type of Anesthesia: Spinal Episiotomy/Laceration: None EBL (cc): 1,200 (Alford changed to #18 catheter, intraop bladder saline irrigation eas done ) Delivery, Single - Stages of Labor Date of Delivery: 04/13/17 Time of Delivery: 08:50 Time Placenta Delivered: 08:51 Placenta: Yes: Manual Removal, Uterine Exploration - Condition of Glazier Artist/Senior Market Intelligence Consultant Present: Yes Name: Chad Corral Infant Gender: Male Weight: 9 lb 12 oz Position: Left, OT Total Hours ROM (Hrs/Mins): 2m - 1 Minute Total Score: 8 5 Minutes Total Score: 9 - Feeding Plan Initial Plan: Exclusive throughout hospitalization Remarks - Remarks Remarks: 41 Yrs , 39 .3 weeks , gestation, previous c/sx3 , requests for repeat c /section & voluntory Sterlization . h/o GDM on Insulin, Novolin R 14 IU before breakfast & dinner Novolin N 24 IU 14 HS . GBS neg Intraop Bladder injury to the bladder dome noted, repaired by Dr Bacon Urologist ANTHONY drain inserted . post op day #2 ANTHONY drain removed , by Dr Bacon alford catheter draining well pt is discharged with alford in situ, leg bag also trained to change she will follow with Dr Bacon in his office for catheter removal . postop she received iv antibiotics ancef & gentamicin for 48 hrs followed by Augmentin 875 mg po bid x10 days . ANEMIA COUSELLED post op diet management for GDM was done, did not require any meds or insulin . diet counselling emphasized discharge today 04/17/17 Discharge Summary Reason For Visit: REPEAT C SECTION Condition: Stable - Instructions Diet, Activity, Other Instructions: Post Instructions DIET: Continue good diet high in protein, calcium, and iron rich foods. Drink at least eight (8) glasses of water daily in addition to other fluids. 2200 travis (ADA) Diabetic Diet MEDICATIONS: Continue vitamins and iron as previously directed. Motrin and Tylenol may be taken for minor discomfort. ACTIVITY: Mild to moderate exercise may be started in two (2) weeks. Take frequent rest periods. Resume normal activity after six (6) week check up. WOUND CARE OF OPERATIVE SITE: Continue use of perineal bottle until vaginal discharge stops. Keep area clean. Shower daily. Keep abdominal wound dry. Report any drainage or redness to physician. Tub baths, tampons and douches are not permitted for [address] Breast feeding & or Bottle feeding BREAST CARE: (For those that are not ): If engorgement occurs: Wear tight fitting bra. Take Tylenol or Motrin for pain. Apply cold packs (ice in bags to each breast ) FAMILY PLANNING: There are many control alternatives to pursue and they should be discussed at your first office visit. You may resume sexual activity after your six (6) week check up. (Remember, breast feeding is not a contraceptive). DIABETES CARE check Bgm fasting & 2 hr post prandial alternate day . CATHETER CARE : Drink plenty po fluids do not pull on catheter Learn to change from leg bag to alford bag . leg bag during day, alford bag at night If urine color is yellow,it means you are drinking adequate amount of fluids, If urine is dark or bown color, it means you must drink more water NEXT PHYSICIAN APPOINTMENT: Be certain to call for a one (1) week appointment, unless otherwise directed. . RT To [facility] on 04/[address] quinones for Kris removal at 10.[address] Bacon's office for follow up of catheter care , removal 04/26/17 11am. Call Clinic or got to Emergency Dept if you have any of the following: Heavy vaginal bleeding Painful urination Leg pain Unusual odor noted to vaginal bleeding High fever Red streaking noted on breast appointment with Dr Longoria on April 26 at 11am. return to clinic in 2 weeks for incision check. call [facility] for appointment. [phone] Referrals: Hayden Bacon MD., MD [Staff Physician] - (april 26 at 11am) Millie Quinones MD [Staff Physician] - Disposition: HOME - Home Medications Comprehensive Discharge Medication List: Ambulatory Orders Pnv95/Ferrous Fumarate/FA [ Vitamin Tablet] 1 each PO DAILY 02/14/17 Acetaminophen [Tylenol .Regular Strength -] 500 mg PO Q4H PRN #30 tablet Amox-Tr/K Cl [Augmentin 875-125mg Tablet -] 1 tab PO BID@0800,1730 #20 tablet Ferrous Sulfate [Feosol] 325 mg PO BID #60 tab 04/16/17 Ibuprofen [Motrin -] 600 mg PO Q4H PRN #30 tablet 04/16/17 Vitamins (Sjr) - 1 tab PO DAILY #30 tablet 04/16/17
== END 2017-04-17 19:15 | disposition home or self-care (01) | DRG 540 ==
LOC: JLDR 06:26 → J3W 13:15
PROVIDERS: ADMIT Obstetrics & Gynecology; ATTEND Obstetrics & Gynecology
PROC: 10D00Z1 Extraction of Products of Conception, Low, Open Approach (ICD-10-PCS; principal; 2017-04-13)
PROC: 0UL Female Reproductive System, Occlusion (ICD-10-PCS; 2017-04-13)
PROC: 0UB60ZZ Excision of Left Fallopian Tube, Open Approach (ICD-10-PCS; 2017-04-13)
PROC: 0TQB0ZZ Repair Bladder, Open Approach (ICD-10-PCS; 2017-04-13)
DX: O34.211 Maternal care for low transverse scar from previous cesarean delivery (principal); O71.5 Other obstetric injury to pelvic organs; O24.414 Gestational diabetes mellitus in pregnancy, insulin controlled; O36.63X0 Maternal care for excessive fetal growth, third trimester, not applicable or unspecified; O10.013 Pre-existing essential hypertension complicating pregnancy, third trimester; O99.013 Anemia complicating pregnancy, third trimester; D64.9 Anemia, unspecified; O98.413 Viral hepatitis complicating pregnancy, third trimester; B19.10 Unspecified viral hepatitis B without hepatic coma; O26.893 Other specified pregnancy related conditions, third trimester; J45.909 Unspecified asthma, uncomplicated; K21.9 Gastro-esophageal reflux disease without esophagitis; Z3A.39 39 weeks gestation of pregnancy; Z37.0 Single live birth; Z30.2 Encounter for sterilization
CPT/HCPCS: 36415; 36600; 80048; 82803; 85025; 85610; 85730; 88302-TC; 88307-TC; 94010

== ENCOUNTER 2022-01-14 13:28 | Emergency (ER) | payer OTHER ==
[2022-01-14] MEDS ORDERED: BEBTELOVIMAB (EUA) 175 MG/2 ML VIAL IVPUSH ONE (13:46)
[2022-01-14 13:55] VITALS: BP 104/61; PULSE 81; TEMP 99; BMI 30.2
== END 2022-01-14 16:20 | disposition home or self-care (01) ==
LOC: JER 13:28 → JCOVINFU 13:28
DX: U07.1 COVID-19 (principal)
CPT/HCPCS: 71046-TC-FY; 99284-25; M0222; Q0222

== ENCOUNTER 2022-04-10 19:01 | Emergency (ER) | payer OTHER ==
[2022-04-10 19:13] VITALS: BP 115/74; PULSE 70; RESP 20; TEMP 98.7; BMI 33.9
[2022-04-10] MEDS ORDERED: IBUPROFEN 600 MG TABLET (FP) PO ONE ×2 (20:05→20:09)
[2022-04-10 21:08] LABS: URINE APPEARANCE CLEAR; URINE BILIRUBIN NEGATIVE (NEGATIVE); URINE COLOR YELLOW; URINE GLUCOSE (UA) NEGATIVE (NEGATIVE); URINE KETONE NEGATIVE (NEGATIVE); URINE LEUK ESTERASE NEGATIVE (NEGATIVE); URINE NITRITE NEGATIVE (NEGATIVE); URINE PROTEIN NEGATIVE (NEGATIVE); URINE UROBILINOGEN 0.2 mg/dL (0.2-1.0)
[2022-04-10 21:11] LABS: HCG,QUALITATIVE URINE Negative
== END 2022-04-10 22:37 | disposition home or self-care (01) ==
LOC: JER 19:01
DX: M79.662 Pain in left lower leg (principal)
CPT/HCPCS: 81003; 84703; 87077; 87086; 87186; 93971-TC; 99284-25

== ENCOUNTER 2022-05-09 17:20 | Emergency (ER) | payer OTHER ==
[2022-05-09 17:33] VITALS: BP 121/73; PULSE 79; RESP 18; TEMP 98.1; BMI 29.8
[2022-05-09] MEDS ORDERED: SODIUM CHLORIDE 0.9% 500 ML INFUS.BAG IV ONE (19:15)
[2022-05-09] MEDS ORDERED: KETOROLAC TROMETHAMINE 30 MG/1 ML VIAL IVPUSH ONE (19:15)
[2022-05-09] MEDS ORDERED: METOCLOPRAMIDE HCL INJECTION 10 MG/2 ML VIAL IVPUSH ONE (19:15)
[2022-05-09] MEDS ORDERED: METOCLOPRAMIDE HCL INJECTION 10 MG/2 ML VIAL ONE (19:53)
[2022-05-09] MEDS ORDERED: KETOROLAC TROMETHAMINE 30 MG/1 ML VIAL ONE (19:53)
[2022-05-09 20:27] LABS: BASO % 0.3 % (0-2.0); EOS % 0.1 % (0-4.5); HEMATOCRIT 36.9 % (32.4-45.2); HEMOGLOBIN 12.1 GM/dL (10.7-15.3); LYMPH % 11.6 % (8-40); MCHC 32.6 g/dl (32.0-36.0); MEAN CELL VOLUME 82.8 fl (80-96); MEAN PLT VOLUME 7.4 fl (7.5-11.1); PLATELET COUNT 292 10^3/uL (134-434); RBC 4.46 M/mm3 (3.60-5.2); RDW 16.5 % (11.6-15.6); WHITE BLOOD COUNT 7.7 K/mm3 (4.0-10.0)
[2022-05-09 20:45] LABS: ALBUMIN 3.5 g/dl (3.4-5.0); BLOOD UREA NITROGEN 11.4 mg/dL (7-18); CALCIUM 8.9 mg/dL (8.5-10.1)
[2022-05-09 20:49] LABS: CREATININE 0.6 mg/dL (0.55-1.3)
[2022-05-09 20:50] LABS: BILIRUBIN,TOTAL 0.5 mg/dL (0.2-1); TOT PROT 7.2 g/dl (6.4-8.2)
== END 2022-05-09 22:01 | disposition home or self-care (01) ==
LOC: JER 17:20
PROC: 3E033NZ Introduction of Analgesics, Hypnotics, Sedatives into Peripheral Vein, Percutaneous Approach (ICD-10-PCS; principal; 2022-05-09)
PROC: 3E0333Z Introduction of Anti-inflammatory into Peripheral Vein, Percutaneous Approach (ICD-10-PCS; 2022-05-09)
PROC: 3E033GC Introduction of Other Therapeutic Substance into Peripheral Vein, Percutaneous Approach (ICD-10-PCS; 2022-05-09)
DX: R51.9 Headache, unspecified (principal)
CPT/HCPCS: 36415; 70450-TC; 80053; 85025; 99285-25

== ENCOUNTER 2022-12-16 18:51 | Emergency (ER) | payer OTHER ==
[2022-12-16 18:58] VITALS: BP 124/80; PULSE 79; RESP 18; TEMP 97.7; BMI 32.8
[2022-12-16] MEDS ORDERED: ACETAMINOPHEN 1000 MG/100 ML BAG IVPB ONE (20:22)
[2022-12-16] MEDS ORDERED: ACETAMINOPHEN INJECTION 100 ML IVPB ONE (20:46)
[2022-12-16 21:05] LABS: BASO % 0.5 % (0-2.0); EOS % 0.8 % (0-4.5); HEMATOCRIT 35.1 % (32.4-45.2); HEMOGLOBIN 11.9 GM/dL (10.7-15.3); LYMPH % 28.8 % (8-40); MCH 27.2 pg (25.7-33.7); MCHC 33.8 g/dl (32.0-36.0); MEAN CELL VOLUME 80.3 fl (80-96); MEAN PLT VOLUME 6.8 fl (7.5-11.1); MONO % 7.6 % (3.8-10.2); NEUT % 62.3 % (42.8-82.8); PLATELET COUNT 273 10^3/uL (134-434); RBC 4.37 M/mm3 (3.60-5.2); RDW 15.7 % (11.6-15.6); WHITE BLOOD COUNT 5.3 K/mm3 (4.0-10.0)
[2022-12-16 21:07] LABS: EPI CELLS 10 /uL (0-25.1); HYALINE CASTS 0 /uL (0-3.1); PH,URINE 6.5 (5.0-8.0); URINE APPEARANCE CLEAR; URINE BACTERIA 1 /uL (0-1359); URINE BILIRUBIN NEGATIVE (NEGATIVE); URINE COLOR YELLOW; URINE GLUCOSE (UA) NEGATIVE (NEGATIVE); URINE KETONE NEGATIVE (NEGATIVE); URINE LEUK ESTERASE NEGATIVE (NEGATIVE); URINE NITRITE NEGATIVE (NEGATIVE); URINE PROTEIN NEGATIVE (NEGATIVE); URINE RBC 15 /uL (0-23.9); URINE UROBILINOGEN 0.2 mg/dL (0.2-1.0); URINE WBC 1 /uL (0-25.8)
[2022-12-16 21:28] LABS: CALCIUM 8.9 mg/dL (8.5-10.1)
[2022-12-16 21:29] LABS: ALBUMIN 3.6 g/dl (3.4-5.0); BLOOD UREA NITROGEN 9.8 mg/dL (7-18)
[2022-12-16 21:32] LABS: CREATININE 0.6 mg/dL (0.55-1.3)
[2022-12-16 21:33] LABS: TOT PROT 7.2 g/dl (6.4-8.2)
[2022-12-16 21:34] LABS: BILIRUBIN,TOTAL 0.3 mg/dL (0.2-1)
[2022-12-17] MEDS ORDERED: ACETAMINOPHEN INJECTION 100 ML IVPB ONE (00:48)
[2022-12-17] MEDS ORDERED: CEFTRIAXONE 1 GM/50 ML BAG ONE (00:48)
[2022-12-17] MEDS ORDERED: LIDOCAINE HCL/PF 1% SDV 5ML VIAL ONE (01:05)
== END 2022-12-17 01:41 | disposition home or self-care (01) ==
LOC: JER 18:51
PROC: 3E033NZ Introduction of Analgesics, Hypnotics, Sedatives into Peripheral Vein, Percutaneous Approach (ICD-10-PCS; principal; 2022-12-16)
PROC: 3E02329 Introduction of Other Anti-infective into Muscle, Percutaneous Approach (ICD-10-PCS; 2022-12-16)
DX: N70.01 Acute salpingitis (principal); R10.32 Left lower quadrant pain; R30.0 Dysuria; R35.0 Frequency of micturition
CPT/HCPCS: 36415; 74177-TC; 76830-TC; 80053; 81003; 84703; 85025; 87086; 99285-25

== ENCOUNTER 2023-04-22 21:08 | Emergency (ER) | payer OTHER ==
[2023-04-22 21:22] VITALS: BP 116/76; PULSE 78; RESP 19; TEMP 98.4; BMI 33.2
[2023-04-22] MEDS ORDERED: MAG HYDROX/AL HYDROX/SIMETH 30 ML UNIT-DOSE CUP PO ONE (22:02)
[2023-04-22] MEDS ORDERED: FAMOTIDINE 20 MG/50 ML IVPB 20 MG/50 ML MG IVPB ONE ×2 (22:02→22:10)
[2023-04-22] MEDS ORDERED: ACETAMINOPHEN 1000 MG/100 ML BAG IVPB ONE (22:03)
[2023-04-22] MEDS ORDERED: ACETAMINOPHEN INJECTION 100 ML IVPB ONE (22:10)
[2023-04-22] MEDS ORDERED: MAG HYDROX/AL HYDROX/SIMETH 30 ML UNIT-DOSE CUP ONE (22:10)
[2023-04-22] MEDS ORDERED: ACETAMINOPHEN 325 MG TABLET (FP) PO ONE (22:14)
[2023-04-22] MEDS ORDERED: ACETAMINOPHEN 325 MG TABLET (FP) ONE (22:24)
[2023-04-22 22:44] LABS: BASO % 0.5 % (0-2.0); EOS % 0.6 % (0-4.5); HEMATOCRIT 35.6 % (32.4-45.2); HEMOGLOBIN 11.9 GM/dL (10.7-15.3); LYMPH % 19.3 % (8-40); MCH 26.6 pg (25.7-33.7); MCHC 33.3 g/dl (32.0-36.0); MEAN CELL VOLUME 79.9 fl (80-96); MONO % 9.7 % (3.8-10.2); NEUT % 69.9 % (42.8-82.8); PLATELET COUNT 286 10^3/uL (134-434); RBC 4.46 M/mm3 (3.60-5.2); RDW 15.2 % (11.6-15.6); WHITE BLOOD COUNT 4.8 K/mm3 (4.0-10.0)
[2023-04-22 23:07] LABS: POTASSIUM 3.7 mmol/L (3.5-5.1)
[2023-04-22 23:10] LABS: ALBUMIN 3.8 g/dl (3.4-5.0); BLOOD UREA NITROGEN 8.2 mg/dL (7-18); CALCIUM 8.7 mg/dL (8.5-10.1)
[2023-04-22 23:13] LABS: CREATININE 0.6 mg/dL (0.55-1.3)
[2023-04-22 23:15] LABS: BILIRUBIN,TOTAL 0.4 mg/dL (0.2-1); TOT PROT 7.8 g/dl (6.4-8.2)
[2023-04-22 23:22] LABS: EPI CELLS 7 /uL (0-25.1); HYALINE CASTS 0 /uL (0-3.1); PH,URINE 7.5 (5.0-8.0); URINE APPEARANCE CLEAR; URINE BACTERIA 112 /uL (0-1359); URINE BILIRUBIN NEGATIVE (NEGATIVE); URINE COLOR YELLOW; URINE GLUCOSE (UA) NEGATIVE (NEGATIVE); URINE KETONE NEGATIVE (NEGATIVE); URINE LEUK ESTERASE NEGATIVE (NEGATIVE); URINE NITRITE NEGATIVE (NEGATIVE); URINE PROTEIN NEGATIVE (NEGATIVE); URINE RBC 56 /uL (0-23.9); URINE UROBILINOGEN 0.2 mg/dL (0.2-1.0); URINE WBC 2 /uL (0-25.8)
== END 2023-04-22 23:38 | disposition home or self-care (01) ==
LOC: JERFT 21:08 → JER 21:08
DX: R51.9 Headache, unspecified (principal); R50.9 Fever, unspecified; R10.30 Lower abdominal pain, unspecified; R30.0 Dysuria; M54.50 Low back pain, unspecified; R05.9 Cough, unspecified; J02.9 Acute pharyngitis, unspecified; U07.1 COVID-19
CPT/HCPCS: 0241U-QW; 36415; 71046-TC-FY; 80053; 81003; 83690; 84703; 85025; 87077; 87086; 99284-25

== ENCOUNTER 2023-10-01 10:50 | Emergency (ER) | payer OTHER ==
[2023-10-01 11:02] VITALS: BP 110/56; PULSE 75; RESP 18; TEMP 98.1; BMI 29.9
[2023-10-01] MEDS ORDERED: ACETAMINOPHEN 325 MG TABLET (FP) PO ONE (12:11)
[2023-10-01] MEDS ORDERED: ACETAMINOPHEN 325 MG TABLET (FP) ONE (12:31)
[2023-10-01 12:56] LABS: BASO % 0.5 % (0-2.0); EOS % 1.7 % (0-4.5); HEMATOCRIT 34.5 % (32.4-45.2); HEMOGLOBIN 11.2 GM/dL (10.7-15.3); LYMPH % 31.5 % (8-40); MCH 25.4 pg (25.7-33.7); MCHC 32.3 g/dl (32.0-36.0); MEAN CELL VOLUME 78.7 fl (80-96); MEAN PLT VOLUME 7.1 fl (7.5-11.1); MONO % 7.4 % (3.8-10.2); NEUT % 58.9 % (42.8-82.8); PLATELET COUNT 280 10^3/uL (134-434); RBC 4.38 M/mm3 (3.60-5.2); RDW 16.9 % (11.6-15.6); WHITE BLOOD COUNT 5.6 K/mm3 (4.0-10.0)
[2023-10-01 13:08] LABS: INR 1.02 (0.83-1.09); PROTHROMBIN TIME (PATIENT) 11.8 SEC (9.7-13.0)
[2023-10-01 13:11] LABS: ACTIVATED PTT 34.2 SECONDS (25.2-36.5)
[2023-10-01 13:26] LABS: POTASSIUM 3.9 mmol/L (3.5-5.1)
[2023-10-01 13:28] LABS: CALCIUM 9.3 mg/dL (8.5-10.1)
[2023-10-01 13:29] LABS: ALBUMIN 3.4 g/dl (3.4-5.0)
[2023-10-01 13:32] LABS: CREATININE 0.6 mg/dL (0.55-1.3)
[2023-10-01 13:33] LABS: BILIRUBIN,TOTAL 0.2 mg/dL (0.2-1); TOT PROT 7.2 g/dl (6.4-8.2)
[2023-10-01 14:02] LABS: PH,URINE 6.5 (5.0-8.0); URINE APPEARANCE CLEAR; URINE BILIRUBIN NEGATIVE (NEGATIVE); URINE COLOR YELLOW; URINE GLUCOSE (UA) NEGATIVE (NEGATIVE); URINE KETONE NEGATIVE (NEGATIVE); URINE LEUK ESTERASE NEGATIVE (NEGATIVE); URINE NITRITE NEGATIVE (NEGATIVE); URINE PROTEIN NEGATIVE (NEGATIVE); URINE UROBILINOGEN 0.2 mg/dL (0.2-1.0)
== END 2023-10-01 22:05 | disposition home or self-care (01) ==
LOC: JER 10:50
DX: R10.32 Left lower quadrant pain (principal); R07.89 Other chest pain
CPT/HCPCS: 36415; 74177-TC; 76830-TC; 80053; 81003; 83605; 83690; 84484; 85025; 85610; 85730; 86140; 93005; 93010; 99285-25; Q9967

== ENCOUNTER 2023-11-27 07:01 | Emergency (ER) | payer OTHER ==
[2023-11-27 07:13] VITALS: TEMP 97.8; BMI 27.4
[2023-11-27] MEDS ORDERED: METOCLOPRAMIDE HCL INJECTION 10 MG/2 ML VIAL ONE (08:02)
[2023-11-27] MEDS ORDERED: ACETAMINOPHEN INJECTION 100 ML IVPB ONE (08:02)
[2023-11-27] MEDS ORDERED: MAG HYDROX/AL HYDROX/SIMETH 30 ML UNIT-DOSE CUP ONE (08:03)
[2023-11-27 08:39] LABS: BASO % 0.2 % (0-2.0); EOS % 0.3 % (0-4.5); HEMATOCRIT 37.5 % (32.4-45.2); HEMOGLOBIN 12.2 GM/dL (10.7-15.3); LYMPH % 18.7 % (8-40); MCH 26.2 pg (25.7-33.7); MCHC 32.6 g/dl (32.0-36.0); MEAN CELL VOLUME 80.3 fl (80-96); MONO % 3.7 % (3.8-10.2); NEUT % 77.1 % (42.8-82.8); PLATELET COUNT 294 10^3/uL (134-434); RBC 4.67 M/mm3 (3.60-5.2); RDW 16.5 % (11.6-15.6)
[2023-11-27] MEDS: SODIUM CHLORIDE 0.9% 500 ML INFUS.BAG IV ONE (08:43)
[2023-11-27] MEDS: METOCLOPRAMIDE HCL INJECTION 10 MG/2 ML VIAL IVPUSH ONE (08:44)
[2023-11-27 08:59] LABS: CALCIUM 8.7 mg/dL (8.5-10.1)
[2023-11-27 09:00] LABS: ALBUMIN 3.6 g/dl (3.4-5.0); BLOOD UREA NITROGEN 18.5 mg/dL (7-18); MAGNESIUM 1.9 mg/dL (1.8-2.4)
[2023-11-27] MEDS ORDERED: FAMOTIDINE 20 MG/50 ML IVPB 20 MG/50 ML MG IVPB ONE (09:02)
[2023-11-27 09:03] LABS: CREATININE 0.6 mg/dL (0.55-1.3)
[2023-11-27 09:05] LABS: BILIRUBIN,TOTAL 0.3 mg/dL (0.2-1); TOT PROT 7.6 g/dl (6.4-8.2)
[2023-11-27] MEDS: ACETAMINOPHEN 1000 MG/100 ML BAG IVPB ONE (09:16)
[2023-11-27] MEDS: MAG HYDROX/AL HYDROX/SIMETH 30 ML UNIT-DOSE CUP PO ONE (09:16)
[2023-11-27] MEDS: FAMOTIDINE 20 MG/50 ML IVPB 20 MG/50 ML MG IVPB ONE (09:47)
[2023-11-27 10:34] VITALS: BP 130/79; PULSE 84; RESP 16
== END 2023-11-27 10:34 | disposition home or self-care (01) ==
LOC: JER 07:01
PROC: 3E033GC Introduction of Other Therapeutic Substance into Peripheral Vein, Percutaneous Approach (ICD-10-PCS; principal; 2023-11-27)
PROC: 3E030NZ Introduction of Analgesics, Hypnotics, Sedatives into Peripheral Vein, Open Approach (ICD-10-PCS; 2023-11-27)
PROC: 3E030GC Introduction of Other Therapeutic Substance into Peripheral Vein, Open Approach (ICD-10-PCS; 2023-11-27)
DX: R11.10 Vomiting, unspecified (principal); R51.9 Headache, unspecified; R10.13 Epigastric pain; R42 Dizziness and giddiness; Z20.822 Contact with and (suspected) exposure to COVID-19
CPT/HCPCS: 0241U-QW; 36415; 70450-TC; 80053; 82962; 83735; 84484; 84703; 85025; 93005; 93010; 99285-25; J0131

== ENCOUNTER 2024-10-28 10:47 | Emergency (ER) | payer OTHER ==
[2024-10-28] MEDS ORDERED: ACETAMINOPHEN INJECTION 100 ML ONE (11:59)
[2024-10-28] MEDS: ACETAMINOPHEN 1000 MG/100 ML BAG IVPB ONE (12:06)
[2024-10-28 12:15] LABS: BASO % 0.4 % (0-2.0); EOS % 1.4 % (0-4.5); HEMATOCRIT 39.3 % (32.4-45.2); HEMOGLOBIN 13.3 GM/dL (10.7-15.3); LYMPH % 37.9 % (8-40); MCH 28.3 pg (25.7-33.7); MCHC 33.9 g/dl (32.0-36.0); MEAN CELL VOLUME 83.4 fl (80-96); MEAN PLT VOLUME 7.2 fl (7.5-11.1); MONO % 6.9 % (3.8-10.2); NEUT % 53.4 % (42.8-82.8); PLATELET COUNT 256 10^3/uL (134-434); RBC 4.71 M/mm3 (3.60-5.2)
[2024-10-28 12:37] LABS: ALBUMIN 3.7 g/dl (3.4-5.0); CALCIUM 9.4 mg/dL (8.5-10.1)
[2024-10-28 12:38] LABS: BLOOD UREA NITROGEN 14.4 mg/dL (7-18)
[2024-10-28 12:41] LABS: BILIRUBIN,TOTAL 0.5 mg/dL (0.2-1); CREATININE 0.7 mg/dL (0.55-1.3); TOT PROT 7.2 g/dl (6.4-8.2)
[2024-10-28 13:09] VITALS: BP 119/66; PULSE 81; RESP 18; TEMP 98.6; BMI 31.1
== END 2024-10-28 14:41 | disposition home or self-care (01) ==
LOC: JER 10:47
PROC: 3E033NZ Introduction of Analgesics, Hypnotics, Sedatives into Peripheral Vein, Percutaneous Approach (ICD-10-PCS; principal; 2024-10-28)
DX: R07.89 Other chest pain (principal); M54.2 Cervicalgia; R06.02 Shortness of breath; R53.83 Other fatigue; R20.0 Anesthesia of skin; R20.2 Paresthesia of skin; Z63.8 Other specified problems related to primary support group
CPT/HCPCS: 36415; 71046-TC-FY; 80053; 84484; 85025; 93005; 93010; 99285-25; J0131